=== PATIENT | male | born 1965 | race Caucasian/White ===

== ENCOUNTER → 2017-04-24 | Outpatient (CLI) | payer MEDICAID ==
--- NOTE | 2017-04-27 14:58 | CPEEG ---
[f rep st] ELECTROENCEPHALOGRAM DATE OF STUDY: 04/24/2017 INTERPRETATION: Normal EEG during wakefulness and sleep. There were no potentially epileptogenic ab normalities present during recording. REPORT: This EEG contains 10-11 Hz alpha activity in the posterior head regions. The background act ivity was normal and symmetric. There was no abnormal activation at rest or during photic stimulatio n or hyperventilation. The patient became drowsy and fell asleep during the study. There was no abn ormal activation during drowsiness, sleep, or times of arousal. /[id number]/MODL
== END ==
LOC: FCPNEURO 14:48
PROVIDERS: ATTEND Psychiatry & Neurology Neurology
DX: R44.0 Auditory hallucinations (principal); Z87.820 Personal history of traumatic brain injury